=== PATIENT | female | born 1985 ===

== ENCOUNTER 2017-12-22 14:36 | Outpatient (CLI) | payer OTHER | END 2017-12-22 14:48 | disposition home or self-care (01) | LOC: LAB 14:36 | DX: T81.4XXA Infection following a procedure, initial encounter (principal) ==

== ENCOUNTER 2018-09-10 09:43 | Outpatient (CLI) | payer OTHER | END 2018-09-10 09:51 | disposition home or self-care (01) | LOC: RX STUDY 09:43 | DX: N39.0 Urinary tract infection, site not specified (principal) ==

== ENCOUNTER 2018-09-11 11:19 | Outpatient (CLI) | payer OTHER | END 2018-09-11 11:21 | disposition home or self-care (01) | LOC: SONOGRAMA 11:19 | DX: N39.0 Urinary tract infection, site not specified (principal) ==